=== PATIENT | female | born 1985 | race Caucasian/White ===

== ENCOUNTER 2017-12-29 15:53 | Inpatient (IN) | payer OTHER, SELFPAY ==
[2017-12-29 15:54] VITALS: BP 139/65; PULSE 41; RESP 16; TEMP 36.4; O2SAT 100; BMI 38.6
[2017-12-29 16:07] VITALS: BP 132/75; PULSE 71; RESP 18; O2SAT 100
[2017-12-29] MEDS: 0.9% Normal Saline 1,000 ML 1000 ML IV (16:42)
[2017-12-29] MEDS: Morphine 4 MG/ML Syringe IV ×2 (16:42→17:59)
[2017-12-29] MEDS: Ondansetron 4 MG/2 ML Vial IV (16:42)
[2017-12-29 16:57] LABS: Absolute Lymphocyte Count 4.54 X10^3/ul (0.83-4.51); Absolute Neutrophil Count 7.2 X10^3/uL (2.0-7.7); Basophil# 0.02 X10^3/uL; Basophil% 0.2 % (0-1); Eosinophils% 1.6 % (0-5); Hematocrit 37.5 % (37-47); Hemoglobin 12.2 g/dl (12.0-15.0); Lymphocyte # 4.54 X10^3/ul (4.0); Lymphocyte % 35.6 % (19-41); Mean Corp Hgb Conc 32.5 g/gl (32-36); Mean Corpuscular Volume 86.2 fL (81-99); Mean Platelet Vol. 9.8 fl (6.2-12.0); Monocyte# 0.75 X10^3/uL; Monocyte% 5.9 % (0-10); Neutrophil # 7.23 X10^3/uL (2.7-7.7); Neutrophil % 56.6 % (47-70); Platelet Count 314 K/mm3 (150-450); RBC Distribution Width CV 13.4 % (11.6-14.6); RBC Distribution Width SD 42.5 fl (35.1-43.9); Red Blood Count 4.35 M/mm3 (4.2-5.4); White Blood Count 12.8 K/mm3 (4.4-11.0)
[2017-12-29 17:02] LABS: POSITIVE COUNT NO; POSITIVE DIFFERENTIAL NO; POSITIVE MORPHOLOGY NO
[2017-12-29 17:09] LABS: Partial Thromboplast Time 31.2 Seconds (24.1-36.2)
[2017-12-29 17:10] LABS: ALB/GLOB Ratio 0.8 RATIO (0.9-2.4); AST(SGOT) 33 U/L (15-37); Alanine Aminotransfer ALT/SGPT 25 U/L (13-56); Albumin, Serum 3.7 g/dL (3.2-5.0); Alkaline Phosphatase 97 U/L (45-117); Anion Gap 11 (5-15); BUN 14 mg/dL (7-18); BUN/Creat Ratio 14.6 RATIO (10-20); Calcium,Total 8.7 mg/dL (8.5-10.1); Chloride 107 mmol/L (98-107); Creatinine, Serum 0.96 mg/dL (0.55-1.02); EST Glomerular Filtration Rate 72 mL/min (>60); Est Glom Filt Rate - Afr Amer 87 mL/min (>60); Estimated Creatinine Clearance 73.32 ml/min; Globulin 4.6 g/dL (2.2-4.2); Glucose 92 mg/dL (74-106); Lipase 153 U/L (73-393); Protein, Total 8.3 g/dL (6.4-8.2); Sodium Level 142 mmol/L (136-145)
[2017-12-29 17:18] LABS: Prothrombin Time (Protime)PT. 13.5 SECONDS (11.7-14.9)
--- NOTE | 2017-12-29 17:47 | EKG12_ITS ---
Test Reason : GI BLEED Blood Pressure : / mmHG Vent. Rate : 067 BPM Atrial Rate : 067 BPM P-R Int : 138 ms QRS Dur : 096 ms QT Int : 718 ms P-R-T Axes : 041 010 033 degrees QTc Int : 758 ms Sinus rhythm with frequent Premature ventricular complexes and Premature atrial complexes Prolonged QT Abnormal ECG Confirmed by BLANCA DUMONT, EDER ([id number]), purchase request editor SHANICE NICKERSON ([id number]) on 01/03/2018 2:40:31 PM Referred By: Confirmed By:EDER RIOS MD
--- NOTE | 2017-12-29 17:56 | ED.VISSUMM ---
- ER Visit Summary Date of Service: 12/29/17 Chief Complaint: Abdominal pain and rectal bleeding History of Present Illness: The patient is a 32 F with abdominal pain for the past 5 days. Patient reports cramps, worse on the right side. Associated with diarrhea and nausea. Pain has been constant today. She has had some blood in her diarrhea over the last few days, but today she is passing clots. She was seen at an outside emergency department. She had lab testing and CT imaging that showed colitis. She also had a potassium of 3.2. She was not . Her urinalysis was unremarkable. Lactate was normal. She was discharged on Bentyl and Flagyl. Her symptoms worsened today and so she came for an evaluation. She has no history of this. Physical Examination: Afebrile and vital signs unremarkable. Alert and oriented. No acute distress. Heart regular rate and rhythm. Lungs clear. Abdomen soft but tender in the right side. No guarding or rebound. Skin appears normal. Rectal exam was unremarkable for any gross bleeding. This was chaperoned by the nurse. Test Results: White count 12.8. Potassium 3.0. Liver panel and lipase normal. Coags normal. Fecal occult blood testing positive. Emergency Department Course and Treatment: Patient treated with fluids, morphine, and Zofran. She had continued pain and required additional morphine. She was also treated with Phenergan for continued nausea. Nursing did note bigeminy on her monitor. Will check an EKG. Results are pending. At this time, I did not feel that repeat CT was indicated given the potential risks. She has diagnosis of colitis. Her signs and symptoms and laboratory findings are consistent with this. Will treat with potassium and Zosyn. Hospitalist was contacted for further care. Treatment Plan: As above Disposition: Admission Impression: 1. Colitis 2. Hemoccult-positive stool 3. Hypokalemia This note was generated with [employer] dictation software. It may contain incorrect words, spelling, and punctuation that were not noted in review of the chart prior to signing ED Disposition - Plan for ED Patient: Chief Complaint: GI Bleed Referrals: Care Physician,No Primary [Primary Care Provider] -
--- NOTE | 2017-12-29 17:59 | ED.DCSUM_ITS ---
- ER Visit Summary Date of Service: 12/29/17 Chief Complaint: Abdominal pain and rectal bleeding History of Present Illness: The patient is a 32 F with abdominal pain for the past 5 days. Patient reports cramps, worse on the right side. Associated with diarrhea and nausea. Pain has been constant today. She has had some blood in her diarrhea over the last few days, but today she is passing clots. She was seen at an outside emergency department. She had lab testing and CT imaging that showed colitis. She also had a potassium of 3.2. She was not . Her urinalysis was unremarkable. Lactate was normal. She was discharged on Bentyl and Flagyl. Her symptoms worsened today and so she came for an evaluation. She has no history of this. Physical Examination: Afebrile and vital signs unremarkable. Alert and oriented. No acute distress. Heart regular rate and rhythm. Lungs clear. Abdomen soft but tender in the right side. No guarding or rebound. Skin appears normal. Rectal exam was unremarkable for any gross bleeding. This was chaperoned by the nurse. Test Results: White count 12.8. Potassium 3.0. Liver panel and lipase normal. Coags normal. Fecal occult blood testing positive. Emergency Department Course and Treatment: Patient treated with fluids, morphine , and Zofran. She had continued pain and required additional morphine. She was also treated with Phenergan for continued nausea. Nursing did note bigeminy on her monitor. Will check an EKG. Results are pending. At this time, I did not feel that repeat CT was indicated given the potential risks. She has diagnosis of colitis. Her signs and symptoms and laboratory findings are consistent with this. Will treat with potassium and Zosyn. Hospitalist was contacted for further care. Treatment Plan: As above Disposition: Admission Impression: 1. Colitis 2. Hemoccult-positive stool 3. Hypokalemia This note was generated with [employer] dictation software. It may contain incorrect words, spelling, and punctuation that were not noted in review of the chart prior to signing ED Disposition - Plan for ED Patient: Chief Complaint: GI Bleed Referrals: Care Physician,No Primary [Primary Care Provider] -
[2017-12-29 18:01] VITALS: BP 124/64; PULSE 68; RESP 18; O2SAT 99
--- NOTE | 2017-12-29 18:09 | PCM.HP.STD ---
Problem List (1) Colitis Status: Acute (2) Hypokalemia Status: Acute History of Present Illness Date of Admission: 12/29/17 Chief Complaint: abdominal pain The patient is a 32 year old F who presents to the ER with c/o cramping abdominal pain and diarrhea for 5 days. Starting Wednesday she has had abdominal pain described as all over cramping. She went to urgent care and had a CT showing diffuse colitis and was discharged on flagyl and bentyl. It is worse with any PO intake, however lately she has not been eating or drinking and is still having the pain and diarrhea. She had no improvement. She has had bright red blood filling the bowl. She thought she was improving this morning, but later started passing red clots and has doubled over with cramps. She has no fever or chills. She has some nausea but has not had vomiting. She has no medical hx. She does not have a gb and has had intermittent chronic diarrhea with certain foods. She has not been out of the country. Nobody in the house is sick. She has been camping but takes bottled water. Is on well water. 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 Denies: Nausea, Vomiting Genitourinary: Denies: Dysuria Musculoskeletal: Denies: Joint Pain, Joint Tenderness Skin: Denies: Rash, Wounds Neurological: Denies: Numbness, Tingling, Focal weakness Psychiatric: Denies: Anxiety, Depression, Homicidal Ideations, Suicidal Ideations Hematologic/ Lymphatic: Denies: Easy Bruising, Easy Bleeding VTE Information - Inpt Only VTE Present on Admission: No VTE Mechan Device Prophylaxis: SCD's VTE Pharm Prophylaxis ordered?: No Patient Problems: Active and Suspected Problems Colitis (Acute) Hypokalemia (Acute) - Physical Exam General: Alert, Oriented x3, Cooperative HEENT: Atraumatic, PERRLA, EOMI, Normocephalic Neck: Supple, No JVD, Negative Carotid Bruits Lungs: Clear to auscultation, Normal air movement Cardiovascular: Regular rate, No murmurs Abdomen: Bowel Sounds Present, Soft, Tender - diffuse no guarding or rigidity Extremities: No edema, Capillary Refill Less than 3 Seconds Skin: No rashes, No breakdown Musculoskeletal: No Tenderness to Palpation of Joints or Extremities Neurological: Cranial nerves II-XII grossly intact Psych/Mental Status: Normal Affect, Appropriate, Alert and oriented to time, place, person, mood and affect Vital Signs Temp Pulse Resp BP Pulse Ox 97.5 F L 68 18 124/64 H 99 12/29/17 15:54 12/29/17 18:01 12/29/17 18:01 12/29/17 18:01 12/29/17 18:01 Oxygen Delivery Method Room Air Weight: 225 lb 3.2 oz Body Mass Index (BMI) 38.6 Microbiology Past 72 Hours 12/29/17 16:30 Stool Occult Blood (NATHAN) - Final Stool Occult Blood Positive Laboratory Tests Past 24 Hrs 12/29/17 12/29/17 12/29/17 16:30 16:30 16:30 WBC 12.8 H RBC 4.35 Hgb 12.2 Hct 37.5 MCV 86.2 MCH 28.0 MCHC 32.5 RDW 13.4 RDW Differential 42.5 Plt Count 314 MPV 9.8 Immature Gran % (Auto) 0.100 Neut % (Auto) 56.6 Lymph % (Auto) 35.6 [place] % (Auto) 5.9 Eos % (Auto) 1.6 Baso % (Auto) 0.2 Absolute Neuts (auto) 7.2 Absolute Lymphs (auto) 4.54 H Total Counted Not Reportable PT 13.5 INR 1.0 APTT 31.2 Sodium 142 Potassium 3.0 L Chloride 107 Carbon Dioxide 24.0 Anion Gap 11 BUN 14 Creatinine 0.96 Estim Creat Clear Calc 73.32 Est GFR (MDRD) Af Amer 87 Est GFR (MDRD) Non-Af 72 BUN/Creatinine Ratio 14.6 Glucose 92 Calcium 8.7 Total Bilirubin 0.40 AST 33 ALT 25 Alkaline Phosphatase 97 Total Protein 8.3 H Albumin 3.7 Globulin 4.6 H Albumin/Globulin Ratio 0.8 L Lipase 153 Assessment/Plan All Active Problems Colitis (Acute) Hypokalemia (Acute) 1. Acute colitis - with bloody stools. Hgb stable. Start zosyn. Failed flagyl. Check enteric panel, stool lactoferrin. Hemoccult +, ivana blood in stools. Diffuse crampy abdominal pain. lipase normal. Leukocytosis but otherwise normal vital. Proabably viral, but will rule out bacterial as she camps, has well water, and has a farm with numerous potential hosts. Will also add PPI. 2. Hypokalemia - repleted in ER. 3. Bigemini on monitor- get 12 lead. DVT ppx: SCDs, early ambulation This patient was seen by Yoan Blandon PA-C under the supervision of Dr. Hutchinson
--- NOTE | 2017-12-29 18:19 | HP.PCM_ITS ---
Problem List (1) Colitis Status: Acute (2) Hypokalemia Status: Acute History of Present Illness Date of Admission: 12/29/17 Chief Complaint: abdominal pain The patient is a 32 year old F who presents to the ER with c/o cramping abdominal pain and diarrhea for 5 days. Starting Wednesday she has had abdominal pain described as all over cramping. She went to urgent care and had a CT showing diffuse colitis and was discharged on flagyl and bentyl. It is worse with any PO intake, however lately she has not been eating or drinking and is still having the pain and diarrhea. She had no improvement. She has had bright red blood filling the bowl. She thought she was improving this morning, but later started passing red clots and has doubled over with cramps. She has no fever or chills. She has some nausea but has not had vomiting. She has no medical hx. She does not have a gb and has had intermittent chronic diarrhea with certain foods. She has not been out of the country. Nobody in the house is sick. She has been camping but takes bottled water. Is on well water. 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 Denies: Nausea, Vomiting Genitourinary: Denies: Dysuria Musculoskeletal: Denies: Joint Pain, Joint Tenderness Skin: Denies: Rash, Wounds Neurological: Denies: Numbness, Tingling, Focal weakness Psychiatric: Denies: Anxiety, Depression, Homicidal Ideations, Suicidal Ideations Hematologic/ Lymphatic: Denies: Easy Bruising, Easy Bleeding VTE Information - Inpt Only VTE Present on Admission: No VTE Mechan Device Prophylaxis: SCD's VTE Pharm Prophylaxis ordered?: No Patient Problems: Active and Suspected Problems Colitis (Acute) Hypokalemia (Acute) - Physical Exam General: Alert, Oriented x3, Cooperative HEENT: Atraumatic, PERRLA, EOMI, Normocephalic Neck: Supple, No JVD, Negative Carotid Bruits Lungs: Clear to auscultation, Normal air movement Cardiovascular: Regular rate, No murmurs Abdomen: Bowel Sounds Present, Soft, Tender - diffuse no guarding or rigidity Extremities: No edema, Capillary Refill Less than 3 Seconds Skin: No rashes, No breakdown Musculoskeletal: No Tenderness to Palpation of Joints or Extremities Neurological: Cranial nerves II-XII grossly intact Psych/Mental Status: Normal Affect, Appropriate, Alert and oriented to time, place, person, mood and affect Vital Signs Temp Pulse Resp BP Pulse Ox 97.5 F L 68 18 124/64 H 99 12/29/17 15:54 12/29/17 18:01 12/29/17 18:01 12/29/17 18:01 12/29/17 18:01 Oxygen Delivery Method Room Air Weight: 225 lb 3.2 oz Body Mass Index (BMI) 38.6 Microbiology Past 72 Hours 12/29/17 16:30 Stool Occult Blood (NATHAN) - Final Stool Occult Blood Positive Laboratory Tests Past 24 Hrs 12/29/17 12/29/17 12/29/17 16:30 16:30 16:30 WBC 12.8 H RBC 4.35 Hgb 12.2 Hct 37.5 MCV 86.2 MCH 28.0 MCHC 32.5 RDW 13.4 RDW Differential 42.5 Plt Count 314 MPV 9.8 Immature Gran % (Auto) 0.100 Neut % (Auto) 56.6 Lymph % (Auto) 35.6 [place] % (Auto) 5.9 Eos % (Auto) 1.6 Baso % (Auto) 0.2 Absolute Neuts (auto) 7.2 Absolute Lymphs (auto) 4.54 H Total Counted Not Reportable PT 13.5 INR 1.0 APTT 31.2 Sodium 142 Potassium 3.0 L Chloride 107 Carbon Dioxide 24.0 Anion Gap 11 BUN 14 Creatinine 0.96 Estim Creat Clear Calc 73.32 Est GFR (MDRD) Af Amer 87 Est GFR (MDRD) Non-Af 72 BUN/Creatinine Ratio 14.6 Glucose 92 Calcium 8.7 Total Bilirubin 0.40 AST 33 ALT 25 Alkaline Phosphatase 97 Total Protein 8.3 H Albumin 3.7 Globulin 4.6 H Albumin/Globulin Ratio 0.8 L Lipase 153 Assessment/Plan All Active Problems Colitis (Acute) Hypokalemia (Acute) 1. Acute colitis - with bloody stools. Hgb stable. Start zosyn. Failed flagyl. Check enteric panel, stool lactoferrin. Hemoccult +, ivana blood in stools. Diffuse crampy abdominal pain. lipase normal. Leukocytosis but otherwise normal vital. Proabably viral, but will rule out bacterial as she camps, has well water , and has a farm with numerous potential hosts. Will also add PPI. 2. Hypokalemia - repleted in ER. 3. Bigemini on monitor- get 12 lead. DVT ppx: SCDs, early ambulation This patient was seen by Yoan Blandon PA-C under the supervision of Dr. Hutchinson
[2017-12-29] MEDS: proMETHazine 25 MG/ML Syringe 6.25 MG IV (18:27)
[2017-12-29] MEDS: Piperacil/Tazobactam 3.375 GM/50 ML ML IV ×2 (18:27→22:02)
[2017-12-29 18:48] VITALS: BMI 38.4
[2017-12-29 19:16] VITALS: BP 138/74; PULSE 52; RESP 18; TEMP 37; O2SAT 100
--- NOTE | 2017-12-29 19:31 | ECHOD_ITS ---
Reason For Study: Arrhythmia Procedure This was a 2D Doppler, Color Flow transthoracic echocardiogram. Exam performed portable in patient room. Left Ventricle Normal size and thickness. The estimated ejection fraction is 65 %. Normal diastology for age. No regional wall motion abnormalities noted. Right Ventricle Normal size and thickness. Normal systolic function. Atria Normal left atrium. Normal right atrium. Normal atrial septum. Mitral Valve The mitral valve is structurally normal. No prolapse or stenosis seen. Tricuspid Valve Normal tricuspid valve. Mild (1+) tricuspid valve insufficiency. Right ventricular systolic pressure estimated to be 41 mmHg. Mild pulmonary hypertension. Aortic Valve Normal aortic valve. Trisinus/trileaflet aortic valve. Pulmonic Valve Normal pulmonic valve. Trivial pulmonic valve insufficiency. Great Vessels Normal aortic root. Normal arch. Normal inferior vena cava. Inferior vena cava collapse with sniff. Pericardium/Pleural No pericardial effusion. MMode/2D Measurements & Calculations LVIDd: 5.2 cm IVSd: 1.0 cm LVOT diam: 2.0 cm LVIDs: 2.5 cm LVPWd: 0.91 cm LVOT area: 3.0 cm2 RVDd: 3.8 cm FS: 52.6 % Ao root diam: 3.1 cm LAV(MOD-bp): 61.9 ml LA A4 area: 20.5 cm2 LA dimension: 4.3 cm LAV(MOD-bp) Indexed: 30.1 ml/m2 LAV(MOD-sp2): 62.4 ml LAV(MOD-sp4): 59.7 ml RA A4 area: 18.6 cm2 Time Measurements MV dec time: 0.22 sec Doppler Measurements & Calculations MV E max mustapha: 103.5 cm/sec Lat Peak E' Mustapha: 13.9 cm/sec Med Peak E' Mustapha: 9.9 cm/sec MV A max mustapha: 60.9 cm/sec E/E' lat: 7.5 E/E' med: 10.4 MV E/A: 1.7 MV V2 max: 107.9 cm/sec MV P1/2t max mustapha: 109.1 cm/sec Ao V2 max: 192.6 cm/sec MV max P.7 mmHg MV P1/2t: 89.5 msec Ao max P.8 mmHg MV V2 mean: 47.1 cm/sec MV dec slope: 357.2 cm/sec2 Ao V2 mean: 134.1 cm/sec MV mean P.1 mmHg MVA(P1/2t): 2.5 cm2 Ao mean P.1 mmHg MV V2 VTI: 31.1 cm Ao V2 VTI: 41.9 cm MVA(VTI): 3.2 cm2 SAURAV(I,D): 2.3 cm2 SAURAV(V,D): 2.2 cm2 LV V1 max: 144.9 cm/sec SV(LVOT): 98.1 ml PA V2 max: 93.2 cm/sec LV V1 max P.4 mmHg LV V1 mean P.5 mmHg LV V1 mean: 98.5 cm/sec LV V1 VTI: 32.8 cm TR max mustapha: 294.0 cm/sec TR max P.6 mmHg Interpretation Summary The estimated ejection fraction is 65 %. Normal diastology for age. Mild (1+) tricuspid valve insufficiency. Right ventricular systolic pressure estimated to be 41 mmHg. Mild pulmonary hypertension. There is no comparison study available. Ordering Physician: Tasneem Hutchinson Referring Physician: No PCP noted Performed By: Frederick Downing RCS
[2017-12-29 19:48] VITALS: PULSE 60
[2017-12-29 21:14] LABS: Magnesium 2.1 mg/dL (1.6-2.6)
[2017-12-29 21:35] VITALS: BP 118/65; PULSE 53; RESP 16; TEMP 36.6; O2SAT 97
[2017-12-29] MEDS: HYDROmorphone 0.5 MG/0.5 ML SYRINGE IV (21:38)
[2017-12-29] MEDS: Dicyclomine 10 MG Capsule 20 MG PO (21:40)
[2017-12-30] VITALS (10 sets, daily range): BP systolic 107–132; BP diastolic 55–71; PULSE 55–74; RESP 16–18; TEMP 36.6–37; O2SAT 95–100
[2017-12-30] MEDS: 0.9% Normal Saline 1,000 ML 125 ML IV ×3 (02:11→16:52)
[2017-12-30] MEDS: HYDROmorphone 0.5 MG/0.5 ML SYRINGE IV ×4 (02:29→22:10)
[2017-12-30] MEDS: Ondansetron 4 MG/2 ML Vial IV ×3 (02:29→18:16)
[2017-12-30 02:39] LABS: Absolute Lymphocyte Count 3.79 X10^3/ul (0.83-4.51); Absolute Neutrophil Count 4.5 X10^3/uL (2.0-7.7); Basophil# 0.05 X10^3/uL; Basophil% 0.5 % (0-1); Eosinophil# 0.35 X10^3/uL; Eosinophils% 3.8 % (0-5); Hematocrit 32.7 % (37-47); Hemoglobin 10.5 g/dl (12.0-15.0); Lymphocyte # 3.79 X10^3/ul (4.0); Lymphocyte % 41.3 % (19-41); Mean Corp Hgb Conc 32.1 g/gl (32-36); Mean Corpuscular Volume 87.2 fL (81-99); Mean Platelet Vol. 9.5 fl (6.2-12.0); Monocyte# 0.44 X10^3/uL; Monocyte% 4.8 % (0-10); Neutrophil # 4.53 X10^3/uL (2.7-7.7); Neutrophil % 49.5 % (47-70); Platelet Count 260 K/mm3 (150-450); RBC Distribution Width CV 13.4 % (11.6-14.6); RBC Distribution Width SD 41.4 fl (35.1-43.9); Red Blood Count 3.75 M/mm3 (4.2-5.4); White Blood Count 9.2 K/mm3 (4.4-11.0)
[2017-12-30 02:42] LABS: Differential Indicated SCAN CRITERIA MET; POSITIVE COUNT NO; POSITIVE DIFFERENTIAL NO; POSITIVE MORPHOLOGY YES
[2017-12-30 02:59] LABS: Anion Gap 8 (5-15); BUN 11 mg/dL (7-18); BUN/Creat Ratio 12.9 RATIO (10-20); Calcium,Total 7.5 mg/dL (8.5-10.1); Chloride 112 mmol/L (98-107); Cholesterol 122 mg/dL (200); Creatinine, Serum 0.85 mg/dL (0.55-1.02); EST Glomerular Filtration Rate 83 mL/min (>60); Est Glom Filt Rate - Afr Amer 100 mL/min (>60); Estimated Creatinine Clearance 82.81 ml/min; Glucose 89 mg/dL (74-106); High Density Lipoprotein 38 mg/dL; Potassium 3.7 mmol/L (3.5-5.1); Sodium Level 143 mmol/L (136-145); Triglycerides 80 mg/dL; Very Low Density Lipoprotein 16 mg/dL (5-40)
[2017-12-30] MEDS: Dicyclomine 10 MG Capsule 20 MG PO ×4 (05:12→22:10)
[2017-12-30] MEDS: Piperacil/Tazobactam 3.375 GM/50 ML ML IV (05:12)
--- NOTE | 2017-12-30 05:55 | EKG12_ITS ---
Test Reason : AM EKG Blood Pressure : / mmHG Vent. Rate : 051 BPM Atrial Rate : 051 BPM P-R Int : 142 ms QRS Dur : 094 ms QT Int : 446 ms P-R-T Axes : 031 020 059 degrees QTc Int : 411 ms Sinus bradycardia Otherwise normal ECG When compared with ECG of 29-DEC-2017 18:09, MANUAL COMPARISON REQUIRED, DATA IS UNCONFIRMED Confirmed by BLANCA DUMONT, EDER ([id number]), editor sound SHANICE NICKERSON ([id number]) on 01/03/2018 3:58:22 PM Referred By: NERY Confirmed By:EDER RIOS MD
[2017-12-30] MEDS: Acetaminophen 325 MG Tablet 650 MG PO (06:39)
[2017-12-30] MEDS: Pantoprazole Sodium 40 MG Tablet PO (09:28)
--- NOTE | 2017-12-30 09:34 | PCM.PROGNOTE ---
<Alisha Agudelo - Last Filed: 12/30/17 10:11> Patient Problems: Active and Suspected Problems Colitis (Acute) Hypokalemia (Acute) Subjective: Patient seen exam. Undergoing echocardiogram. Denies pain currently. States she had significant lower abdominal pain this morning. She states improved with rest. She describes pain as cramping, similar to menstrual cramps only intensified. States she has had frequent episodes of diarrhea this morning. Denies fever, chills. Complains of nausea, no emesis. - Physical Exam General: Alert, Oriented x3, Cooperative, No apparent distress HEENT: Atraumatic, PERRLA, EOMI, Normocephalic Neck: Supple, No JVD, Negative Carotid Bruits Lungs: Clear to auscultation, Normal air movement Cardiovascular: Regular Rhythm, Normal S1, Normal S2, No murmurs, Bradycardic Abdomen: Bowel Sounds Present, Soft, Non-Distended, Obese, Tender - Generalized Extremities: No clubbing, No cyanosis, No edema, Capillary Refill Less than 3 Seconds Skin: No rashes, No breakdown Musculoskeletal: No Tenderness to Palpation of Joints or Extremities Neurological: Cranial nerves II-XII grossly intact, Neuro grossly intact Psych/Mental Status: Normal Affect, Appropriate Vital Signs Temp Pulse Resp BP Pulse Ox 98.5 F 55 L 18 107/67 100 12/30/17 08:30 12/30/17 08:30 12/30/17 08:30 12/30/17 08:30 12/30/17 08:30 Oxygen Delivery Method Room Air Weight: 225 lb 2.882 oz Body Mass Index (BMI) 38.4 Intake and Output for Last 24 Hours 12/28/17 12/29/17 12/30/17 23:59 23:59 23:59 Intake Total 1001 / 1001 Output Total 300 / 300 Balance 701 / 701 Microbiology Past 72 Hours 12/30/17 02:30 Stool Lactoferrin - Final Stool Laboratory Tests Past 24 Hrs 12/29/17 12/29/17 12/30/17 20:39 23:01 02:19 WBC 9.2 RBC 3.75 L Hgb 10.5 L Hct 32.7 L MCV 87.2 MCH 28.0 MCHC 32.1 RDW 13.4 RDW Differential 41.4 Plt Count 260 MPV 9.5 Immature Gran % (Auto) 0.100 Neut % (Auto) 49.5 Lymph % (Auto) 41.3 H [place] % (Auto) 4.8 Eos % (Auto) 3.8 Baso % (Auto) 0.5 Absolute Neuts (auto) 4.5 Absolute Lymphs (auto) 3.79 Total Counted Not Reportable Sodium Potassium Chloride Carbon Dioxide Anion Gap BUN Creatinine Estim Creat Clear Calc Est GFR (MDRD) Af Amer Est GFR (MDRD) Non-Af BUN/Creatinine Ratio Glucose Calcium Magnesium 2.1 Troponin I < 0.015 < 0.015 Triglycerides Cholesterol LDL Cholesterol VLDL Cholesterol HDL Cholesterol 12/30/17 12/30/17 02:19 02:19 WBC RBC Hgb Hct MCV MCH MCHC RDW RDW Differential Plt Count MPV Immature Gran % (Auto) Neut % (Auto) Lymph % (Auto) [place] % (Auto) Eos % (Auto) Baso % (Auto) Absolute Neuts (auto) Absolute Lymphs (auto) Total Counted Sodium 143 Potassium 3.7 Chloride 112 H Carbon Dioxide 23.0 Anion Gap 8 BUN 11 Creatinine 0.85 Estim Creat Clear Calc 82.81 Est GFR (MDRD) Af Amer 100 Est GFR (MDRD) Non-Af 83 BUN/Creatinine Ratio 12.9 Glucose 89 Calcium 7.5 L Magnesium Troponin I < 0.015 Triglycerides 80 Cholesterol 122 LDL Cholesterol 68 VLDL Cholesterol 16 HDL Cholesterol 38 L Medical Necessity - Tobacco Use Smoking Status: Never smoker Tobacco Use: Non-smoker Assessment/Plan All Active Problems Colitis (Acute) Hypokalemia (Acute) 1. Acute colitis/gastroenteritis, stool panel positive for shiga toxin- Stool lactoferrin negative. C. difficile pending. Ova and parasites pending. Continue IV fluids. NPO with sips and chips. Advance diet as tolerated. PRN Antiemetics. PRN pain regimen. Discontinue antibiotics. 2. Intermittent bigeminy, bradycardia-troponin negative. EKG without acute changes. Echocardiogram pending. 3. Hypokalemia- Resolved. DVT prophylaxis- SCDs This patient was seen by Alisha Agudelo NP-C under the supervision of Dr. Pandey. <Raina Pandey - Last Filed: 12/30/17 14:17> - Physical Exam Vital Signs Temp Pulse Resp BP Pulse Ox 98.5 F 55 L 18 107/67 100 12/30/17 08:30 12/30/17 08:30 12/30/17 08:30 12/30/17 08:30 12/30/17 08:30 Oxygen Delivery Method Room Air Weight: 225 lb 2.882 oz Body Mass Index (BMI) 38.4 Intake and Output for Last 24 Hours 12/28/17 12/29/17 12/30/17 23:59 23:59 23:59 Intake Total 1635 / 1635 Output Total 1100 / 1100 Balance 535 / 535 Microbiology Past 72 Hours 12/30/17 02:30 C. difficile DNA Amplification - Final Stool 12/30/17 02:30 Enteric Bacteriology - Final Stool Shiga Toxin 1 12/30/17 02:30 Stool Lactoferrin - Final Stool Laboratory Tests Past 24 Hrs 12/29/17 12/29/17 12/30/17 20:39 23:01 02:19 WBC 9.2 RBC 3.75 L Hgb 10.5 L Hct 32.7 L MCV 87.2 MCH 28.0 MCHC 32.1 RDW 13.4 RDW Differential 41.4 Plt Count 260 MPV 9.5 Immature Gran % (Auto) 0.100 Neut % (Auto) 49.5 Lymph % (Auto) 41.3 H [place] % (Auto) 4.8 Eos % (Auto) 3.8 Baso % (Auto) 0.5 Absolute Neuts (auto) 4.5 Absolute Lymphs (auto) 3.79 Total Counted Not Reportable Sodium Potassium Chloride Carbon Dioxide Anion Gap BUN Creatinine Estim Creat Clear Calc Est GFR (MDRD) Af Amer Est GFR (MDRD) Non-Af BUN/Creatinine Ratio Glucose Calcium Magnesium 2.1 Troponin I < 0.015 < 0.015 Triglycerides Cholesterol LDL Cholesterol VLDL Cholesterol HDL Cholesterol 12/30/17 12/30/17 02:19 02:19 WBC RBC Hgb Hct MCV MCH MCHC RDW RDW Differential Plt Count MPV Immature Gran % (Auto) Neut % (Auto) Lymph % (Auto) [place] % (Auto) Eos % (Auto) Baso % (Auto) Absolute Neuts (auto) Absolute Lymphs (auto) Total Counted Sodium 143 Potassium 3.7 Chloride 112 H Carbon Dioxide 23.0 Anion Gap 8 BUN 11 Creatinine 0.85 Estim Creat Clear Calc 82.81 Est GFR (MDRD) Af Amer 100 Est GFR (MDRD) Non-Af 83 BUN/Creatinine Ratio 12.9 Glucose 89 Calcium 7.5 L Magnesium Troponin I < 0.015 Triglycerides 80 Cholesterol 122 LDL Cholesterol 68 VLDL Cholesterol 16 HDL Cholesterol 38 L Assessment/Plan Patient seen by Alisha MORRISON under my supervision. Patient was admitted with a complaint of bloody diarrhea, fever and chills. She also had associated abdominal cramping. CT scan done in outside hospital ED was notable for diffuse colitis she was initially discharged home on Bentyl and oral Flagyl but pain was ongoing so she came into the ED. She also complained of intermittent midsternal and left-sided chest pressure which was worsened by any exertional activity with assisted occasional lightheadedness and mild headache. EKG revealed bigeminy and CBC showed WBC of 12.8. She was started on IV Zosyn in the ED. Stool was positive for Shiga toxin and ova and parasites are pending. Patient seen and examined this morning. She still complains of diarrhea overnight and said she had several episodes of bloody diarrhea. She denies any fever or chills and complains of abdominal cramping but denies nausea and vomiting. 12 point review of systems otherwise negative. Labs and vitals reviewed. On examination: Vital Signs Height 5 ft 4.17 in Weight: 225 lb 2.882 oz Weight in Pounds 225.2 lbs Pulse Ox 100 Temperature 98.5 F Pulse Rate 55 Respiratory Rate 18 Blood Pressure 107/67 Blood Pressure Position Semi-Fowlers General: Alert, Oriented x3, Cooperative, No apparent distress HEENT: Atraumatic, PERRLA, EOMI, Normocephalic Neck: Supple, No JVD, Negative Carotid Bruits Lungs: Clear to auscultation, Normal air movement Cardiovascular: Regular Rhythm, Normal S1, Normal S2, No murmurs, Bradycardic Abdomen: Bowel Sounds Present, Soft, Non-Distended, Obese, Tender - Generalized Extremities: No clubbing, No cyanosis, No edema, Capillary Refill Less than 3 Seconds Skin: No rashes, No breakdown Musculoskeletal: No Tenderness to Palpation of Joints or Extremities Neurological: Cranial nerves II-XII grossly intact, Neuro grossly intact Psych/Mental Status: Normal Affect, Appropriate 1. Gastroenteritis with colitis: improving. continue IVF and dc antibiotics for now. Stool grew Shiga toxin. 2. Chest pain: complained of episodic chest pain. EKG showed bigeminy. troponins were negative. 2D echo reading pending. continue monitoring with telemetry. Rest of management as per Alisha MORRISON's note. Code Visit Inpatient E&M: 90884 Subs Hosp L3
--- NOTE | 2017-12-30 09:55 | CASEMGMT ---
SEE ROMY SAINZ ASSESS LINK: D/C PLAN: HOME Intro role to ROMY SAINZ. Pt up ad juliette in room and to bathroom. @ bedside. Pt reports is independent @ home, requires no DME, and denies discharge needs. Pt has no PCP and has been provided with list of local PCP's. CM to follow for any discharge planning needs that may arise. Brayden STANTON BSN ALISTAIR.
[2017-12-30] MEDS: proMETHazine 25 MG/ML Syringe 6.25 MG IV (12:49)
[2017-12-31] VITALS (10 sets, daily range): BP systolic 119–126; BP diastolic 69–76; PULSE 50–71; RESP 16–18; TEMP 36.7–37.2; O2SAT 97–98
[2017-12-31] MEDS: 0.9% Normal Saline 1,000 ML 125 ML IV ×3 (00:56→17:31)
[2017-12-31] MEDS: Acetaminophen 325 MG Tablet 650 MG PO (00:56)
[2017-12-31] MEDS: Dicyclomine 10 MG Capsule 20 MG PO ×4 (06:06→21:13)
[2017-12-31 06:16] LABS: Anion Gap 9 (5-15); BUN 3 mg/dL (7-18); BUN/Creat Ratio 4.7 RATIO (10-20); Calcium,Total 8.3 mg/dL (8.5-10.1); Chloride 110 mmol/L (98-107); Creatinine, Serum 0.64 mg/dL (0.55-1.02); EST Glomerular Filtration Rate 114 mL/min (>60); Est Glom Filt Rate - Afr Amer 138 mL/min (>60); Estimated Creatinine Clearance 109.98 ml/min; Glucose 82 mg/dL (74-106); Potassium 3.4 mmol/L (3.5-5.1); Sodium Level 142 mmol/L (136-145)
[2017-12-31 06:23] LABS: Hematocrit 33.8 % (37-47); Hemoglobin 10.9 g/dl (12.0-15.0); Mean Corp Hgb Conc 32.2 g/gl (32-36); Mean Corpuscular Volume 86.9 fL (81-99); Platelet Count 265 K/mm3 (150-450); RBC Distribution Width CV 13.1 % (11.6-14.6); RBC Distribution Width SD 40.5 fl (35.1-43.9); Red Blood Count 3.89 M/mm3 (4.2-5.4); White Blood Count 9.3 K/mm3 (4.4-11.0)
[2017-12-31 06:50] LABS: Scan Indicated on CBC? Y/N NO
[2017-12-31] MEDS: HYDROmorphone 0.5 MG/0.5 ML SYRINGE IV (08:25)
[2017-12-31] MEDS: Ondansetron 4 MG/2 ML Vial IV (08:25)
[2017-12-31] MEDS: 0.9% NaCl Peripheral Flush Adult/Peds IV ×2 (08:26→13:46)
--- NOTE | 2017-12-31 08:32 | EKG12_ITS ---
Test Reason : AM EKG Blood Pressure : / mmHG Vent. Rate : 060 BPM Atrial Rate : 060 BPM P-R Int : 138 ms QRS Dur : 092 ms QT Int : 402 ms P-R-T Axes : 006 009 049 degrees QTc Int : 402 ms Normal sinus rhythm Nonspecific T wave abnormality Abnormal ECG When compared with ECG of 31-DEC-2017 08:52, MANUAL COMPARISON REQUIRED, DATA IS UNCONFIRMED Confirmed by BLANCA DUMONT, EDER ([id number]), makeup editor SHANICE NICKERSON ([id number] on 01/05/2018 3:30:23 PM Referred By: NERY Confirmed By:EDER RIOS MD
--- NOTE | 2017-12-31 09:56 | PN_ITS ---
<Alisha Agudelo - Last Filed: 12/31/17 10:05> Patient Problems: Active and Suspected Problems Colitis (Acute) Hypokalemia (Acute) Subjective: Patient seen and examined. States abdominal pain/cramping is improved. Has had 3 episodes of diarrhea this morning. Notes small amount of blood in stool, although improved. Complains of episode of chest pain this morning. Patient states she has had intermittent chest pain for the past few months. She states sometimes she has 8-10 episodes a day which last approximately 30 seconds. She complains of intermittent palpitations as well. She states she was seen at outside ER at the end of October due to episode of syncope. She states she was not evaluated for her heart at that time. - Physical Exam General: Alert, Oriented x3, Cooperative, No apparent distress HEENT: Atraumatic, PERRLA, EOMI, Normocephalic Neck: Supple, No JVD, Negative Carotid Bruits Lungs: Clear to auscultation, Normal air movement Cardiovascular: Regular Rhythm, Normal S1, Normal S2, No murmurs, Bradycardic Abdomen: Bowel Sounds Present, Soft, Non Tender, Non-Distended, Obese Extremities: No clubbing, No cyanosis, No edema, Capillary Refill Less than 3 Seconds Skin: No rashes, No breakdown Musculoskeletal: No Tenderness to Palpation of Joints or Extremities Neurological: Cranial nerves II-XII grossly intact, Neuro grossly intact Psych/Mental Status: Normal Affect, Appropriate Vital Signs Temp Pulse Resp BP Pulse Ox 98.1 F 54 L 16 126/71 H 97 12/31/17 08:38 12/31/17 08:38 12/31/17 08:38 12/31/17 08:38 12/31/17 08:38 Oxygen Delivery Method Room Air Weight: 225 lb 2.882 oz Body Mass Index (BMI) 38.4 Intake and Output for Last 24 Hours 12/29/17 12/30/17 12/31/17 23:59 23:59 23:59 Intake Total 2623 / 2623 806 / 806 Output Total 1700 / 1700 1000 / 1000 Balance 923 / 923 -194 / -194 Microbiology Past 72 Hours 12/30/17 02:30 C. difficile DNA Amplification - Final Stool 12/30/17 02:30 Enteric Bacteriology - Final Stool Shiga Toxin 1 12/30/17 02:30 Stool Lactoferrin - Final Stool Laboratory Tests Past 24 Hrs 12/31/17 12/31/17 12/31/17 05:21 05:21 09:02 WBC 9.3 RBC 3.89 L Hgb 10.9 L Hct 33.8 L MCV 86.9 MCH 28.0 MCHC 32.2 RDW 13.1 RDW Differential 40.5 Plt Count 265 MPV 10.0 Sodium 142 Potassium 3.4 L Chloride 110 H Carbon Dioxide 23.0 Anion Gap 9 BUN 3 L Creatinine 0.64 Estim Creat Clear Calc 109.98 Est GFR (MDRD) Af Amer 138 Est GFR (MDRD) Non-Af 114 BUN/Creatinine Ratio 4.7 L Glucose 82 Calcium 8.3 L Troponin I < 0.015 Medical Necessity - Tobacco Use Smoking Status: Never smoker Tobacco Use: Non-smoker Assessment/Plan All Active Problems Colitis (Acute) Hypokalemia (Acute) 1. Acute colitis/gastroenteritis, stool panel positive for shiga toxin- Stool lactoferrin negative. C. difficile negative. Ova and parasites pending. Continue IV fluids. Advance diet as tolerated. Patient continues to complain of nausea and is only had ice chips and Jell-O. PRN Antiemetics. PRN pain regimen. Antibiotics discontinued. Anticipate discharge home tomorrow if continued improvement. 2. Intermittent bigeminy, bradycardia with chest pain-troponin negative. EKG without acute changes. Echocardiogram showed an EF of 65%, mild tricuspid valve insufficiency, RVSP estimated to be 41 mmHg, mild pulmonary hypertension. Will DC with event monitor and outpatient follow up with cardiology. 3. Hypokalemia- Resolved. DVT prophylaxis- SCDs This patient was seen by PRINCE Powers under the supervision of Dr. Pandey. <Raina Pandey - Last Filed: 12/31/17 13:02> - Physical Exam Vital Signs Temp Pulse Resp BP Pulse Ox 98.1 F 54 L 16 126/71 H 97 12/31/17 08:38 12/31/17 08:38 12/31/17 08:38 12/31/17 08:38 12/31/17 08:38 Oxygen Delivery Method Room Air Weight: 225 lb 2.882 oz Body Mass Index (BMI) 38.4 Intake and Output for Last 24 Hours 0912/30/17 12/31/17 23:59 23:59 23:59 Intake Total 2623 / 2623 1621 / 1621 Output Total 1700 / 1700 1400 / 1400 Balance 923 / 923 221 / 221 Microbiology Past 72 Hours 12/30/17 02:30 C. difficile DNA Amplification - Final Stool 12/30/17 02:30 Enteric Bacteriology - Final Stool Shiga Toxin 1 12/30/17 02:30 Stool Lactoferrin - Final Stool Laboratory Tests Past 24 Hrs 12/31/17 12/31/17 12/31/17 05:21 05:21 09:02 WBC 9.3 RBC 3.89 L Hgb 10.9 L Hct 33.8 L MCV 86.9 MCH 28.0 MCHC 32.2 RDW 13.1 RDW Differential 40.5 Plt Count 265 MPV 10.0 Sodium 142 Potassium 3.4 L Chloride 110 H Carbon Dioxide 23.0 Anion Gap 9 BUN 3 L Creatinine 0.64 Estim Creat Clear Calc 109.98 Est GFR (MDRD) Af Amer 138 Est GFR (MDRD) Non-Af 114 BUN/Creatinine Ratio 4.7 L Glucose 82 Calcium 8.3 L Troponin I < 0.015 Assessment/Plan Patient seen by Alisha Agudelo NP-C under my supervision. Diarrhea is no longer bloody. She had 3 loose stools overnight. She uses a well at home, and doesnt purify the water or boil it; only uses a water softener. She denies any fever chills, but complaint of chest pain during review. Troponins and EKG were negative and the EKG showed bigeminy which is been present previously. She says that her grandfather has A. fib and heart problems which started when he was a teenager. 2D echo showed EF of 65%, with normal diastole for age, and RVSP of 41mmHg; otherwise unremarkable. o/e: Vital Signs Height 5 ft 4.17 in Weight: 225 lb 2.882 oz Weight in Pounds 225.2 lbs Pulse Ox 97 Temperature 98.1 F Pulse Rate 54 Respiratory Rate 16 Blood Pressure 126/71 Blood Pressure Position Semi-Fowlers General: Alert, Oriented x3, Cooperative, No apparent distress HEENT: Atraumatic, PERRLA, EOMI, Normocephalic Neck: Supple, No JVD, Negative Carotid Bruits Lungs: Clear to auscultation, Normal air movement Cardiovascular: Regular Rhythm, Normal S1, Normal S2, No murmurs, Bradycardic Abdomen: Bowel Sounds Present, Soft, Non-Distended, Obese, Tender - Generalized Extremities: No clubbing, No cyanosis, No edema, Capillary Refill Less than 3 Seconds Skin: No rashes, No breakdown Musculoskeletal: No Tenderness to Palpation of Joints or Extremities Neurological: Cranial nerves II-XII grossly intact, Neuro grossly intact Psych/Mental Status: Normal Affect, Appropriate Assessmenta dn plan 1. gastroenteritis with colitis; resolving. To encourage oral intake. antibiotics dced. Stool grew Shiga toxin. continue IVF and advance diet as toelrated 2. Chest pain: troponins negative. EKG shows bigeminy. Refer to cardiology on discharge. Patient counseled about purifying her water by boiling it or using water purifying tablets. For likely DC tomorrow once oral intake improves Agree with rest of Alisha Agudelo CARDIOPULMONARY TECHNOLOGIST-c's note. 1 Code Visit OBSV E&M: 99416 Subsequent observation care L2
[2017-12-31] MEDS: HYDROmorphone 1 MG/ML Syringe 0.5 MG IV ×2 (13:46→20:55)
[2017-12-31] MEDS: proMETHazine 25 MG/ML Syringe 6.25 MG IV (20:54)
[2018-01-01] VITALS (12 sets, daily range): BP systolic 110–142; BP diastolic 59–78; PULSE 54–85; RESP 16–18; TEMP 36.8–37.2; O2SAT 96–98
[2018-01-01] MEDS: 0.9% Normal Saline 1,000 ML 125 ML IV ×2 (00:48→14:29)
--- NOTE | 2018-01-01 05:55 | EKG12_ITS ---
Test Reason : AM EKG Blood Pressure : / mmHG Vent. Rate : 053 BPM Atrial Rate : 053 BPM P-R Int : 134 ms QRS Dur : 096 ms QT Int : 420 ms P-R-T Axes : 013 022 048 degrees QTc Int : 394 ms Sinus bradycardia Otherwise normal ECG When compared with ECG of 01-JAN-2018 05:22, MANUAL COMPARISON REQUIRED, DATA IS UNCONFIRMED Confirmed by BLANCA DUMONT, EDER ([id number]), deputy editor in chief SHANICE NICKERSON ([id number]) on 01/05/2018 3:27:59 PM Referred By: JOSE L Confirmed By:EDER RIOS MD
[2018-01-01] MEDS: Dicyclomine 10 MG Capsule 20 MG PO ×4 (06:06→21:29)
[2018-01-01] MEDS: proMETHazine 25 MG/ML Syringe 6.25 MG IV (06:06)
[2018-01-01] MEDS: HYDROmorphone 1 MG/ML Syringe 0.5 MG IV ×2 (06:07→13:31)
[2018-01-01 07:56] LABS: International Normalized Ratio 1.1; Prothrombin Time (Protime)PT. 13.8 SECONDS (11.7-14.9)
[2018-01-01 07:57] LABS: Anion Gap 10 (5-15); BUN 2 mg/dL (7-18); BUN/Creat Ratio 2.6 RATIO (10-20); Calcium,Total 8.5 mg/dL (8.5-10.1); Chloride 108 mmol/L (98-107); Creatinine, Serum 0.76 mg/dL (0.55-1.02); EST Glomerular Filtration Rate 94 mL/min (>60); Est Glom Filt Rate - Afr Amer 114 mL/min (>60); Estimated Creatinine Clearance 92.62 ml/min; Glucose 92 mg/dL (74-106); Partial Thromboplast Time 34.8 Seconds (24.1-36.2); Potassium 3.6 mmol/L (3.5-5.1); Sodium Level 143 mmol/L (136-145)
[2018-01-01 08:11] LABS: Absolute Lymphocyte Count 1.79 X10^3/ul (0.83-4.51); Basophil# 0.04 X10^3/uL; Basophil% 0.5 % (0-1); Differential Indicated SCAN CRITERIA MET; Eosinophil# 0.26 X10^3/uL; Eosinophils% 3.5 % (0-5); Hematocrit 34.9 % (37-47); Hemoglobin 11.2 g/dl (12.0-15.0); Lymphocyte # 1.79 X10^3/ul (4.0); Lymphocyte % 23.8 % (19-41); Mean Corp Hgb Conc 32.1 g/gl (32-36); Mean Corpuscular Hgb 27.5 pg (27.0-32.0); Mean Corpuscular Volume 85.5 fL (81-99); Mean Platelet Vol. 9.6 fl (6.2-12.0); Monocyte# 0.45 X10^3/uL; Neutrophil # 4.99 X10^3/uL (2.7-7.7); Neutrophil % 66.2 % (47-70); POSITIVE COUNT NO; POSITIVE DIFFERENTIAL NO; POSITIVE MORPHOLOGY YES; Platelet Count 256 K/mm3 (150-450); RBC Distribution Width CV 13.1 % (11.6-14.6); RBC Distribution Width SD 40.9 fl (35.1-43.9); Red Blood Count 4.08 M/mm3 (4.2-5.4); White Blood Count 7.5 K/mm3 (4.4-11.0)
[2018-01-01 08:58] LABS: Differential Comment SCANNED; Reactive Lymphocyte 1+
--- NOTE | 2018-01-01 11:31 | DCINST_ITS ---
- Discharge Diagnoses Current Active Problems: Current Active and Chronic Problems Colitis (Acute) Hypokalemia (Acute) You will use the following diet at home:: Clear liquid - Advance as tolerated. Discharge Activity: Return to Normal Activity Call your doctor if you observe: Inability to urinate, Shortness of breath, Dizziness, Fainting spells, Chest pain Instructions: ED Diet [place], ED Gastroenteritis Shigella Ch Allergies/Adverse Reactions: Allergies venom-honey bee [bee venom (honey bee)] Allergy (Severe, Verified 12/29/17 16:31 ) Anaphylaxis azithromycin Allergy (Verified 12/29/17 15:57) Hives Medications to take at Discharge Dicyclomine HCl [Bentyl] 20 mg PO PRN PRN #20 cap 01/01/18 proMETHazine tablet [Phenergan tablet] 25 mg PO Q6H PRN PRN #20 tab 01/01/18 The following prescriptions were given: proMETHazine tablet [Phenergan tablet] 25 mg PO Q6H PRN PRN #20 tab PRN Reason: Nausea Dicyclomine HCl [Bentyl] 20 mg PO PRN PRN #20 cap PRN Reason: Abdominal Cramping Primary Care Physician: Care Physician,No Primary [Primary Care Provider] - Please follow up with your Primary Care Physician in: 1 Week Test Results: Test results from this visit will be discussed in further detail at your follow- up appointment, if applicable. Please Follow Up With: [facility] - Dr. Rogel, Dr. Wall When: Call Wednesday for appointment. Proposed Discharge Date: 01/01/18
--- NOTE | 2018-01-01 11:41 | PCM.DC.SUM ---
Discharge Date and Diagnosis Date of Admission: 12/29/17 Date of Discharge: 01/02/18 - Primary Discharge Diagnosis Active and Suspected Problems 1. Acute gastroenteritis with colitis, positive Shiga toxin 2. Chest pain, bigeminy, mild bradycardia-ACS ruled out. 3. Hypokalemia-resolved. Hospital Course and Treatment Imaging Results: Dr. Rogel- Cardiology Operations: None Procedures: 2-D Echocardiogram, Cardiac catheterization, Stress test Summary of Care Provided: The patient is a 32 year old F admitted 12/29/2017 due to abdominal pain, diarrhea, nausea. CT of abdomen and outside facility showed diffuse colitis. She was started on Flagyl and Bentyl as outpatient with worsening of symptoms. 1. Acute colitis/gastroenteritis, stool panel positive for shiga toxin- Antibiotics discontinued. Stool lactoferrin negative. C. difficile negative. Ova and parasites pending. Instructed patient on bland diet, advance as tolerated. Discharged on phenergan as needed for nausea. Bentyl as needed for abdominal cramping. Instructed patient on good hand hygiene practices. Instructed patient if she develops increased abdominal cramping or nausea to return to clear liquid diet. Follow-up with primary care physician in 1 week. 2. Intermittent bigeminy, bradycardia with chest pain-troponin negative. EKG without acute changes. Echocardiogram showed an EF of 65%, mild tricuspid valve insufficiency, RVSP estimated to be 41 mmHg, mild pulmonary hypertension. Patient underwent nuclear stress test which was found to be abnormal. She then further underwent heart catheterization which demonstrated normal coronary arteries. ACS ruled out. Patient can follow with Dr. Rogel as needed if continued palpitations. 3. Hypokalemia- Resolved. Secondary #1. General: Alert, Oriented x3, Cooperative, No apparent distress HEENT: Atraumatic, PERRLA, EOMI, Normocephalic Neck: Supple, No JVD, Negative Carotid Bruits Lungs: Clear to auscultation, Normal air movement Cardiovascular: Regular Rhythm, Normal S1, Normal S2, No murmurs, Mild Bradycardic Abdomen: Bowel Sounds Present, Soft, Non Tender, Non-Distended, Obese Extremities: No clubbing, No cyanosis, No edema, Capillary Refill Less than 3 Seconds Skin: No rashes, No breakdown Musculoskeletal: No Tenderness to Palpation of Joints or Extremities Neurological: Cranial nerves II-XII grossly intact, Neuro grossly intact Psych/Mental Status: Normal Affect, Appropriate Patient seen exam prior to discharge. Physical assessment as noted above. Patient stable for discharge home with further follow-up with primary care physician and cardiology. This patient was seen by Alisha Agudelo NP-May under the supervision of Dr. Hutchinson. Discharge Diet: Light diet - advance as tolerated Discharge Activity: Return to Normal Activity Call your doctor if you observe: Inability to urinate, Shortness of breath, Dizziness, Fainting spells, Chest pain Home Medications: Medications to take at Discharge Dicyclomine HCl [Bentyl] 20 mg PO PRN PRN #20 cap 01/01/18 proMETHazine tablet [Phenergan tablet] 25 mg PO Q6H PRN PRN #20 tab 01/01/18 Following Prescrptions Were Given to Patient: proMETHazine tablet [Phenergan tablet] 25 mg PO Q6H PRN PRN #20 tab PRN Reason: Nausea Dicyclomine HCl [Bentyl] 20 mg PO PRN PRN #20 cap PRN Reason: Abdominal Cramping Primary Care Physician: Care Physician,No Primary [Primary Care Provider] - Please follow up with your Primary Care Physician in: 1 Week Please Follow Up With: Fercho Rogel MD - May see RESEARCH DEVELOPMENT DIRECTOR/PA When: As needed, if recurrent palpitations. Patient Instructions: ED Diet [place], ED Gastroenteritis Shigella Disposition: Home Minutes spent on discharge:: 35 Patient Condition:: Stable Medical Necessity - Tobacco Use Smoking Status: Never smoker Tobacco Use: Non-smoker Meaningful Use Info Meaningful Use Diagnoses (Choose all that apply): None applicable
--- NOTE | 2018-01-01 12:22 | STRESSREP ---
Stress Test Report Pharmacologic myocardial perfusion stress test. 32-year-old lady with a history of chest pain. Stress protocol: Resting EKG demonstrates sinus rhythm with a rate of 65 bpm resting blood pressure is 110/60 mmHg. 0.4 mg of regadenoson was infused per usual protocol. Continuous EKG monitoring was performed. The patient maintained sinus rhythm throughout the recording the maximum heart rate attained was 120 bpm which was 63% maximum predicted heart rate the maximum workload was 1 metabolic equivalent. At rest there were no ST or T-wave changes noted suggest abnormal flow reserve. 10 minutes into the infusion there was downsloping [address] depression noted in leads II, III and aVF with T-wave inversions noted in V4 V5 and V6 accompanied by chest pain. The resting blood pressure was 110/60 with a final blood pressure 120/62. Myocardial perfusion protocol. 1113.9 mCi of technetium 99m sestamibi was injected at rest. 0.4 mg of regadenoson was infused per usual protocol peak infusion 42.3 mCi of technetium 99m sestamibi was injected stress images were obtained stress and rest images were reconstructed and compared in the short axis vertical long horizontal long axis. Gated images were also obtained Perfusion SPECT analysis: There is significant GI and breast attenuation artifact noted. However, there is significant reduction of perfusion noted involving the entire anterior wall and apex. The inferior wall appears well perfused as well as the septum. The resting images demonstrate improvement in the entire anterior wall suggesting anterior wall ischemia. There is no obvious chamber dilatation noted. Gated SPECT analysis: The gated ejection fraction is noted to be 65% and a suboptimal study. Conclusion: Abnormal pharmacologic myocardial perfusion stress test with suggestion of anterior ischemia. Anterior breast wall donation cannot be completely excluded. EKG changes suggestive of abnormal flow reserve noted.
[2018-01-01] MEDS: 0.9% NaCl Peripheral Flush Adult/Peds IV (13:32)
--- NOTE | 2018-01-01 13:55 | PCM.CONS.C ---
Reason for Consult Date of Consultation: 01/01/18 Reason for Consultation: Chest discomfort History of Present Illness: The patient is a 32 year old F with a history of intermittent migraines who presented to the hospital with GI problems with diarrhea as well as abdominal cramping. She was evaluated and thought to be having a diffuse colitis after being evaluated by a CT scan. She apparently had some bright red blood per rectum. She was treated with antibiotics and subsequently was being medically managed. She also has had a previous history over the last 3-4 months of intermittent chest discomfort described as a squeezing sensation as well as radiating to her right shoulder. She says this occurs at a variety of times including with exertion and going away with rest. When she runs around her kids at home she gets the discomfort and then also when she goes up the stairs she gets the same discomfort as well as market shortness of breath. During this hospitalization she mentioned it she had an EKG done which did not demonstrate any significant abnormalities and was scheduled to have a stress test performed. She underwent a pharmacologic myocardial perfusion stress test today during which she demonstrated and developed chest pain during the infusion as well as developed EKG changes. The nuclear images though there was evidence of possible breast attenuation also had a defect involving the entire anterior wall. Due to the above abnormality cardiology was called to evaluate her. 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 Denies: Chest Discomfort, Shortness of Breath, Orthopnea, PND, Peripheral Edema, Palpitations, Lightheadedness, Dizziness, Near Syncope, Syncope Respiratory: Denies: Cough, Sputum Production, Hemoptysis Gastrointestinal: Denies: Hematemesis, Hematochezia, Melena Genitourinary: Denies: Dysuria, Hematuria Skin: Denies: Rash Subjectve: Pleasant lady no apparent distress at this time Objective: Vital Signs Temp Pulse Resp BP Pulse Ox 98.9 F 85 18 114/62 98 01/01/18 12:47 01/01/18 12:47 01/01/18 12:47 01/01/18 12:47 01/01/18 12:47 Oxygen Delivery Method Room Air Weight: 225 lb 2.882 oz Intake and Output for Last 24 Hours 12/30/17 12/31/17 01/01/18 23:59 23:59 23:59 Intake Total 1622 / 2623 3154 / 3154 2202 / 2202 Output Total 1400 / 1700 1800 / 1800 Balance 222 / 923 1354 / 1354 2202 / 2202 General: Awake, Alert, Oriented x 3 HEENT: PERRL, EOMI, Sclera Non Icteric Neck: Supple, Good ROM, No Lymph Node Enlargement Lungs: Clear to auscultation Cardiovascular: Regular Rhythm, Normal S1, Normal S2, No Murmurs, No Rubs, No Gallops Vascular: No Carotid Bruits, Normal Femoral Pulses, Normal Radial Pulses, Normal Dorsalis Pedal Pulse, Normal Posterior Tibial Pulses Abdomen: Bowel Sounds Present, Soft, Non Tender, No HSM, No Organomegaly Extremities: No Cyanosis, No Clubbing, No edema Neurological: No Focal Motor or Sensory Deficit 01/01/18 06:50: Sodium 143, Potassium 3.6, Chloride 108 H, Carbon Dioxide 25.0, Anion Gap 10, BUN 2 L, Creatinine 0.76, Est GFR (MDRD) Af Amer 114, Est GFR (MDRD) Non-Af 94, BUN/Creatinine Ratio 2.6 L, Glucose 92, Calcium 8.5 01/01/18 06:50: WBC 7.5, RBC 4.08 L, Hgb 11.2 L, Hct 34.9 L, MCV 85.5, MCH 27.5, MCHC 32.1, RDW 13.1, RDW Differential 40.9, Plt Count 256, MPV 9.6, Immature Gran % (Auto) 0.000, Neut % (Auto) 66.2, Lymph % (Auto) 23.8, [place] % (Auto) 6.0, Eos % (Auto) 3.5, Baso % (Auto) 0.5, Absolute Neuts (auto) 5.0, Total Counted Not Reportable 01/01/18 06:50: PT 13.8, INR 1.1, APTT 34.8 Rhythm: EKG: Normal sinus rhythm with no acute changes Assessment/Plan 1. Chest pain with abnormal stress test Ms. gifford presents with chest discomfort with a stress test which is abnormal as well as EKG changes. She is rather young to be experiencing the above that her history appears to have some typical nature to it. The abnormality of the stress test cannot be completely attributable to anterior breast wall attenuation. It is therefore of my opinion that we should at least exclude obstructive coronary disease via a cardiac catheterization. The risk benefits and alternatives have been explained to her and her mother and she understands and agrees to proceed. The above will be performed through the radial approach. Depending on the findings further recommendations will be made. Due to her recent history of bright red blood per rectum I would hold off on giving her any antiplatelet agents at this particular time.
--- NOTE | 2018-01-01 13:59 | PCM.PROGNOTE ---
Subjective: Patient seen and examined. Denies further chest pain overnight. Notes 3 episodes of diarrhea this morning. States abdominal cramping has significantly improved. Denies further blood in stool. Denies fever, chills. Underwent stress test which was reported to be abnormal. Cardiology to evaluate patient. - Physical Exam General: Alert, Oriented x3, Cooperative, No apparent distress HEENT: Atraumatic, PERRLA, EOMI, Normocephalic Neck: Supple, No JVD, Negative Carotid Bruits Lungs: Clear to auscultation, Normal air movement Cardiovascular: Regular Rhythm, Normal S1, Normal S2, No murmurs, Bradycardic Abdomen: Bowel Sounds Present, Soft, Non Tender, Non-Distended, Obese Extremities: No clubbing, No cyanosis, No edema, Capillary Refill Less than 3 Seconds Skin: No rashes, No breakdown Musculoskeletal: No Tenderness to Palpation of Joints or Extremities Neurological: Cranial nerves II-XII grossly intact, Neuro grossly intact Psych/Mental Status: Normal Affect, Appropriate Vital Signs Temp Pulse Resp BP Pulse Ox 98.9 F 85 18 114/62 98 01/01/18 12:47 01/01/18 12:47 01/01/18 12:47 01/01/18 12:47 01/01/18 12:47 Oxygen Delivery Method Room Air Weight: 225 lb 2.882 oz Intake and Output for Last 24 Hours 12/30/17 12/31/17 01/01/18 23:59 23:59 23:59 Intake Total 1622 / 2623 3154 / 3154 2202 / 2202 Output Total 1400 / 1700 1800 / 1800 Balance 222 / 923 1354 / 1354 2202 / 2202 Laboratory Tests Past 24 Hrs 01/01/18 01/01/18 01/01/18 06:50 06:50 06:50 WBC 7.5 RBC 4.08 L Hgb 11.2 L Hct 34.9 L MCV 85.5 MCH 27.5 MCHC 32.1 RDW 13.1 RDW Differential 40.9 Plt Count 256 MPV 9.6 Immature Gran % (Auto) 0.000 Neut % (Auto) 66.2 Lymph % (Auto) 23.8 [place] % (Auto) 6.0 Eos % (Auto) 3.5 Baso % (Auto) 0.5 Absolute Neuts (auto) 5.0 Absolute Lymphs (auto) 1.79 Total Counted Not Reportable Differential Comment SCANNED Reactive Lymphocytes 1+ PT 13.8 INR 1.1 APTT 34.8 Sodium 143 Potassium 3.6 Chloride 108 H Carbon Dioxide 25.0 Anion Gap 10 BUN 2 L Creatinine 0.76 Estim Creat Clear Calc 92.62 Est GFR (MDRD) Af Amer 114 Est GFR (MDRD) Non-Af 94 BUN/Creatinine Ratio 2.6 L Glucose 92 Calcium 8.5 Medical Necessity - Tobacco Use Smoking Status: Never smoker Tobacco Use: Non-smoker Assessment/Plan All Active Problems Colitis (Acute) Hypokalemia (Acute) 1. Acute colitis/gastroenteritis, stool panel positive for shiga toxin- Stool lactoferrin negative. C. difficile negative. Ova and parasites pending. Advance diet as tolerated. PRN Antiemetics. PRN pain regimen. Antibiotics discontinued. 2. Intermittent bigeminy, bradycardia with chest pain-troponin negative. EKG without acute changes. Echocardiogram showed an EF of 65%, mild tricuspid valve insufficiency, RVSP estimated to be 41 mmHg, mild pulmonary hypertension. Patient underwent nuclear stress test which was reported to be abnormal, suggestive of anterior ischemia. Cardiology consulted. Further plans per cardiology. N.p.o. 3. Hypokalemia- Resolved. DVT prophylaxis- SCDs This patient was seen by PRINCE Powers under the supervision of Dr. Hutchinson.
--- NOTE | 2018-01-01 14:01 | CON.PCM_ITS ---
Reason for Consult Date of Consultation: 01/01/18 Reason for Consultation: Chest discomfort History of Present Illness: The patient is a 32 year old F with a history of intermittent migraines who presented to the hospital with GI problems with diarrhea as well as abdominal cramping. She was evaluated and thought to be having a diffuse colitis after being evaluated by a CT scan. She apparently had some bright red blood per rectum. She was treated with antibiotics and subsequently was being medically managed. She also has had a previous history over the last 3-4 months of intermittent chest discomfort described as a squeezing sensation as well as radiating to her right shoulder. She says this occurs at a variety of times including with exertion and going away with rest. When she runs around her kids at home she gets the discomfort and then also when she goes up the stairs she gets the same discomfort as well as market shortness of breath. During this hospitalization she mentioned it she had an EKG done which did not demonstrate any significant abnormalities and was scheduled to have a stress test performed. She underwent a pharmacologic myocardial perfusion stress test today during which she demonstrated and developed chest pain during the infusion as well as developed EKG changes. The nuclear images though there was evidence of possible breast attenuation also had a defect involving the entire anterior wall. Due to the above abnormality cardiology was called to evaluate her. 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 Denies: Chest Discomfort, Shortness of Breath, Orthopnea, PND, Peripheral Edema, Palpitations, Lightheadedness, Dizziness, Near Syncope, Syncope Respiratory: Denies: Cough, Sputum Production, Hemoptysis Gastrointestinal: Denies: Hematemesis, Hematochezia, Melena Genitourinary: Denies: Dysuria, Hematuria Skin: Denies: Rash Subjectve: Pleasant lady no apparent distress at this time Objective: Vital Signs Temp Pulse Resp BP Pulse Ox 98.9 F 85 18 114/62 98 01/01/18 12:47 01/01/18 12:47 01/01/18 12:47 01/01/18 12:47 01/01/18 12:47 Oxygen Delivery Method Room Air Weight: 225 lb 2.882 oz Intake and Output for Last 24 Hours 12/30/17 12/31/17 01/01/18 23:59 23:59 23:59 Intake Total 1622 / 2623 3154 / 3154 2202 / 2202 Output Total 1400 / 1700 1800 / 1800 Balance 222 / 923 1354 / 1354 2202 / 2202 General: Awake, Alert, Oriented x 3 HEENT: PERRL, EOMI, Sclera Non Icteric Neck: Supple, Good ROM, No Lymph Node Enlargement Lungs: Clear to auscultation Cardiovascular: Regular Rhythm, Normal S1, Normal S2, No Murmurs, No Rubs, No Gallops Vascular: No Carotid Bruits, Normal Femoral Pulses, Normal Radial Pulses, Normal Dorsalis Pedal Pulse, Normal Posterior Tibial Pulses Abdomen: Bowel Sounds Present, Soft, Non Tender, No HSM, No Organomegaly Extremities: No Cyanosis, No Clubbing, No edema Neurological: No Focal Motor or Sensory Deficit 01/01/18 06:50: Sodium 143, Potassium 3.6, Chloride 108 H, Carbon Dioxide 25.0, Anion Gap 10, BUN 2 L, Creatinine 0.76, Est GFR (MDRD) Af Amer 114, Est GFR ( MDRD) Non-Af 94, BUN/Creatinine Ratio 2.6 L, Glucose 92, Calcium 8.5 01/01/18 06:50: WBC 7.5, RBC 4.08 L, Hgb 11.2 L, Hct 34.9 L, MCV 85.5, MCH 27.5 , MCHC 32.1, RDW 13.1, RDW Differential 40.9, Plt Count 256, MPV 9.6, Immature Gran % (Auto) 0.000, Neut % (Auto) 66.2, Lymph % (Auto) 23.8, [place] % (Auto) 6.0 , Eos % (Auto) 3.5, Baso % (Auto) 0.5, Absolute Neuts (auto) 5.0, Total Counted Not Reportable 01/01/18 06:50: PT 13.8, INR 1.1, APTT 34.8 Rhythm: EKG: Normal sinus rhythm with no acute changes Assessment/Plan 1. Chest pain with abnormal stress test Ms. gifford presents with chest discomfort with a stress test which is abnormal as well as EKG changes. She is rather young to be experiencing the above that her history appears to have some typical nature to it. The abnormality of the stress test cannot be completely attributable to anterior breast wall attenuation. It is therefore of my opinion that we should at least exclude obstructive coronary disease via a cardiac catheterization. The risk benefits and alternatives have been explained to her and her mother and she understands and agrees to proceed. The above will be performed through the radial approach. Depending on the findings further recommendations will be made. Due to her recent history of bright red blood per rectum I would hold off on giving her any antiplatelet agents at this particular time.
[2018-01-01 14:27] LABS: Pregnancy, Serum, hCG Quali. NEGATIVE Negative (0-9 Nonpreg)
--- NOTE | 2018-01-01 14:32 | CASEMGMT ---
Insurance Review for In-Network facilities for MMO Insurance using MMO website, if transfer is recommended: [facility], [facility], [facility], [facility], [facility], [facility], and [facility].
[2018-01-01] MEDS: HYDROcodone Bitartrate/Apap 5/325 Tablet PO (15:35)
--- NOTE | 2018-01-01 18:20 | NURSING ---
medication pass administered under the supervision of this RN
[2018-01-01] MEDS: Acetaminophen 325 MG Tablet 650 MG PO (22:23)
[2018-01-02] VITALS (12 sets, daily range): BP systolic 99–129; BP diastolic 50–70; PULSE 55–63; RESP 16–18; TEMP 36.7–37.1; O2SAT 96–100
[2018-01-02] MEDS: Dicyclomine 10 MG Capsule 20 MG PO ×2 (06:28→12:39)
[2018-01-02] MEDS: HYDROcodone Bitartrate/Apap 5/325 Tablet PO (06:30)
[2018-01-02] MEDS: Ondansetron 4 MG/2 ML Vial IV (06:31)
[2018-01-02] MEDS: 0.9% NaCl Peripheral Flush Adult/Peds IV (06:31)
--- NOTE | 2018-01-02 08:25 | PCM.PN.CARD ---
Subjectve: Patient seen and evaluated. Appears to be doing better this morning. No further chest pain. Objective: Vital Signs Temp Pulse Resp BP Pulse Ox 98.7 F 58 L 16 99/50 L 97 01/02/18 03:15 01/02/18 07:10 01/02/18 03:15 01/02/18 03:15 01/02/18 03:15 Oxygen Delivery Method Room Air Weight: 225 lb 2.882 oz Intake and Output for Last 24 Hours 12/31/17 01/01/18 01/02/18 23:59 23:59 23:59 Intake Total 3154 / 3154 2622 / 2622 0 / 0 Output Total 1800 / 1800 Balance 1354 / 1354 2622 / 2622 0 / 0 General: Awake, Alert, Oriented x 3 HEENT: PERRL, EOMI, Sclera Non Icteric Neck: Supple, Good ROM, No Lymph Node Enlargement Lungs: Clear to auscultation Cardiovascular: Regular Rhythm, Normal S1, Normal S2, No Murmurs, No Rubs, No Gallops Vascular: No Carotid Bruits, Normal Femoral Pulses, Normal Radial Pulses, Normal Dorsalis Pedal Pulse, Normal Posterior Tibial Pulses Abdomen: Bowel Sounds Present, Soft, Non Tender, No HSM, No Organomegaly Extremities: No Cyanosis, No Clubbing, No edema Neurological: No Focal Motor or Sensory Deficit 01/01/18 06:50: Total Counted Not Reportable Rhythm: EKG: ECHO: Stress Test: Cardiac Cath: PCI: CT Surgery: Holter monitor: EPS: PPM: CXR: Chest CT Scan: Medical Necessity - Tobacco Use Smoking Status: Never smoker Tobacco Use: Non-smoker Assessment/Plan 1. Chest pain with abnormal stress test Ms. Perez presents with chest discomfort with a stress test which is abnormal as well as EKG changes. She is rather young to be experiencing the above that her history appears to have some typical nature to it. The abnormality of the stress test cannot be completely attributable to anterior breast wall attenuation. She does have preserved left ventricular systolic function by the echocardiogram. It is therefore of my opinion that we should at least exclude obstructive coronary disease via a cardiac catheterization. The risk benefits and alternatives have been explained to her and her mother and she understands and agrees to proceed. The above will be performed through the radial approach. Depending on the findings further recommendations will be made. Due to her recent history of bright red blood per rectum I would hold off on giving her any antiplatelet agents at this particular time. Thank you for allowing me to participate in the care of your patient. Please don't hesitate to call if any issues arise
[2018-01-02] MEDS: 0.9% Normal Saline 1,000 ML 15 ML IV (09:44)
--- NOTE | 2018-01-02 10:03 | NURSING ---
verbal report given to barbara STANTON in boat lab[employer]
--- NOTE | 2018-01-02 11:04 | PCM.PN.BLA ---
Progress Note Cardiac catheterization demonstrated normal left main coronary artery, left anterior descending artery with no high-grade stenosis, circumflex artery with no high-grade stenosis, and large dominant right coronary artery with no significant stenosis. Her ejection fraction was noted to be preserved by echocardiogram. My recommendation would therefore to follow up medically. Patient can be discharged later today.
--- NOTE | 2018-01-02 11:08 | CL.D_ITS ---
Patient Name: GIGI DRAPER Study Date: 01/02/2018 Performing: Fercho Rogel MD Ht: 64.17 inches 163 cm : 1985 Wt: 224.87 lbs 102 kg Age: 32 Gender: female BSA: 2.06 PROCEDURE(S) PERFORMED [id number] CLINICAL PROFILE AND INDICATIONS Indications: Suspected CAD Heart Failure: None Stress/Imaging Stress Test w/SPECT MPI: Yes Result: Positive Low RiskStress Test with SPECT MPI: Positive Low Risk CAD Presentations: Symptom unlikely to be ischemic. CONCLUSIONS Normal coronary arteries RECOMMENDATIONS Medical therapy DESCRIPTION OF PROCEDURE The patient arrived to the procedure lab. The risks and benefits of the procedure as well as a full d escription of our services here and current unavailability of surgical backup were fully explained to the patient and/or their significant other prior to the catheterization. The Timeout was completed, verifying the correct patient and procedure. The patient's procedural site was prepped and draped in the usual fashion. Local anesthetic was given subcutaneously to right radial region with Lidocaine 2% . Using a modified Seldinger technique, arterial access was obtained via the right radial artery, a 6 Fr sheath was inserted. Right Coronary Artery selective angiography was then performed in multiple v iews using a 5 Fr. 4.0 Hughes catheter. Left Coronary Artery selective angiography was performed in mu ltiple views using a 5 Fr. 4.0 Hughes catheter.The arterial sheath was pulled and a TR Band was applie d for hemostasis CORONARY ANGIOGRAPHY DOMINANCE: Right Dominant LEFT HEART ASSESSMENT Left Ventricular Ejection Fraction: by Echo 65 % Normal LV wall motion Normal Left Ventricular systolic function LEFT MAIN: Angiographically normal LEFT ANTERIOR DECENDING ARTERY: Angiographically normal CIRCUMFLEX ARTERY: Angiographically normal RIGHT CORONARY ARTERY: Angiographically normal COMPLICATIONS No Complications PROCEDURE MEDICATIONS Versed 1 mg IV Fentanyl 50 mcg IV Versed 1 mg IV Fentanyl 25 mcg IV Fentanyl 25 mcg IV Fentanyl 25 mcg IV Oxygen: 2 L/min via nasal cannula Heparin given IA 01/02/2018 10:38:26 Heparin given IA 01/02/2018 10:38:26 Nitro 100 mcg IC 01/02/2018 10:51:07 Verapamil 2.5mg, Ntg 100mcgs, 2000 units of Heparin given IA 01/02/2018 10:38:26 Verapamil 2.5mg, Ntg 100mcgs, 2000 units of Heparin given IA 01/02/2018 10:38:26 SUMMARY OF HEMODYNAMIC DATA Time AIR REST ECG 10:16:50 AO 106/67 (86) SA 10:40:21 Signed By Fercho Rogel MD On 01/02/2018 11:08:09 Fercho Rogel MD
--- NOTE | 2018-01-02 11:13 | DCINST_ITS ---
You will use the following diet at home:: No restrictions - Advance as tolerated. Discharge Activity: Return to Normal Activity Call your doctor if you observe: Inability to urinate, Shortness of breath, Dizziness, Fainting spells, Chest pain Instructions: ED Diet [place], ED Gastroenteritis Shigella Ch Allergies/Adverse Reactions: Allergies venom-honey bee [bee venom (honey bee)] Allergy (Severe, Verified 12/29/17 16:31 ) Anaphylaxis azithromycin Allergy (Verified 12/29/17 15:57) Hives Medications to take at Discharge Dicyclomine HCl [Bentyl] 20 mg PO PRN PRN #20 cap 01/01/18 proMETHazine tablet [Phenergan tablet] 25 mg PO Q6H PRN PRN #20 tab 01/01/18 The following prescriptions were given: proMETHazine tablet [Phenergan tablet] 25 mg PO Q6H PRN PRN #20 tab PRN Reason: Nausea Dicyclomine HCl [Bentyl] 20 mg PO PRN PRN #20 cap PRN Reason: Abdominal Cramping Primary Care Physician: Care Physician,No Primary [Primary Care Provider] - Please follow up with your Primary Care Physician in: 1 Week Test Results: Test results from this visit will be discussed in further detail at your follow- up appointment, if applicable. Please Follow Up With: Fercho Rogel MD - May see HEAD OPERATOR SULFIDE/PA When: As needed, if recurrent palpitations Proposed Discharge Date: 01/01/18
[2018-01-02] MEDS: 0.9% Normal Saline 1,000 ML 60 ML IV (11:34)
[2018-01-02] MEDS: Acetaminophen 325 MG Tablet 650 MG PO (13:36)
== END 2018-01-02 15:05 | disposition home or self-care (01) | DRG 373 ==
LOC: ED 16:34 → MS3 12-30 06:13 → PCU 01-01 14:00
PROVIDERS: Nurse Practitioner Family; Physician Assistant; Student in an Organized Health Care Education/Training Program; Admitting Provider Family Medicine; Emergency Provider Emergency Medicine; Visit Provider Family Medicine
DX: A04.8 Other specified bacterial intestinal infections (principal); E87.6 Hypokalemia; R00.8 Other abnormalities of heart beat; R00.1 Bradycardia, unspecified; R07.89 Other chest pain; I27.20 Pulmonary hypertension, unspecified
CPT/HCPCS: 36415; 78452; 80048; 80053; 80061; 82274; 83630; 83690; 83735; 84484; 84703; 85025; 85027; 85610; 85730; 87177; 87209; 87493; 87506; 93005; 93017; 93306; 93454; 97802; 99152; 99153; 99282; A9500; J7030; Q9967; A4216; C1769; C1894; J2405; J2785

== ENCOUNTER → 2018-01-21 17:02 | Outpatient (CLI) | payer OTHER, SELFPAY | PROVIDERS: Family Provider Internal Medicine; PCP Internal Medicine; Referring Provider Internal Medicine; Visit Provider Internal Medicine | DX: A49.8 Other bacterial infections of unspecified site (principal) | CPT/HCPCS: 87506 ==

== ENCOUNTER → 2018-08-24 10:26 | Outpatient (CLI) | payer OTHER, SELFPAY ==
[2018-08-24 08:41] VITALS: BMI 41.8
== END ==
PROVIDERS: Family Provider Internal Medicine; PCP Internal Medicine; Referring Provider Internal Medicine Cardiovascular Disease; Visit Provider Internal Medicine Cardiovascular Disease
DX: I49.3 Ventricular premature depolarization (principal)
CPT/HCPCS: 93225; 93226

== ENCOUNTER 2020-04-26 14:55 | Emergency (ER) | payer OTHER, SELFPAY ==
[2019-04-14 13:26] VITALS: BMI 41.1
[2020-04-26 14:57] VITALS: BP 135/79; PULSE 72; RESP 18; TEMP 36.4; O2SAT 97; BMI 41.6
[2020-04-26 15:01] VITALS: BP 132/67; PULSE 72; RESP 18; TEMP 36.3; O2SAT 100
--- NOTE | 2020-04-26 15:22 | EKG12_ITS ---
Test Reason : EMMANUEL PAIN Blood Pressure : / mmHG Vent. Rate : 066 BPM Atrial Rate : 066 BPM P-R Int : 130 ms QRS Dur : 094 ms QT Int : 390 ms P-R-T Axes : 026 024 046 degrees QTc Int : 408 ms Normal sinus rhythm Nonspecific T wave abnormality Abnormal ECG Confirmed by BLANCA DUMONT, EDER ([id number]), art editor MASON CHAPA ([id number]) on 04/29/2020 9:42:05 AM Referred By: KENNY Confirmed By:EDER RIOS MD
--- NOTE | 2020-04-26 15:22 | CT_ITS ---
STUDY: CTA CHEST REASON FOR EXAM: Female, 34 years old. Chest pain, COVID +, increased SOB. RADIATION DOSAGE (If Supplied By Facility): CTDIvol = ( 11.45 ) mGy, DLP = ( 470.88 ) mGycm TECHNIQUE: The examination was performed with the intravenous administration of 100mL Isovue 370. Post-processing of the angiographic images was performed, with multiplanar reformation and 3D reconstruction. Individualized dose optimization techniques were used for this CT. COMPARISON: None. FINDINGS: Normal enhancement of the main pulmonary artery and right and left pulmonary arteries. Normal enhancement of the bilateral peripheral pulmonary arteries. There is no demonstrated pulmonary embolism. Normal thoracic aorta and visualized great vessels. There is no demonstrated aortic dissection. Normal heart and pericardium. Normal mediastinum. Normal hilar regions. Normal visualized trachea and bronchi. The lungs are under expanded. 4 mm indeterminate nodule seen in the posterior left apex, axial image 180. 6 mm indeterminate nodule seen of the left upper lobe, axial image 146. 4 mm nodule in the posterior left lower lobe, axial image 1:15. 3 mm nodule in the posterior right lower lobe, axial image 103. 6 mm indeterminate nodule in the posterior left midlung, axial image 105. Ill-defined 1.2 cm focal pulmonary opacity in the posterior lateral left lower lobe, axial image 78. Ill-defined irregular 1.7 cm pulmonary opacity in the medial right lung base, axial image 78. Ill-defined irregular 3 cm pulmonary opacity in the posterior right costophrenic angle, axial image 57. No effusions. Normal osseous structures. Normal visualized upper abdomen. CT/CTA Chest W/WO Contrast IMPRESSION: Normal CTA chest examination, without a demonstrated pulmonary embolism or arterial dissection. Low lung volumes. Numerous focal pulmonary opacities as above, most likely inflammatory. These are not typical for COVID 19. Correlate clinically and recommend follow-up. Electronically Signed: Neeraj Jensen MD at 16:53 EST , Service support ,
[2020-04-26 15:35] VITALS: O2SAT 98
[2020-04-26] MEDS: 0.9% Normal Saline 1,000 ML 1000 ML IV (15:38)
[2020-04-26 15:39] LABS: Absolute Lymphocyte Count 2.74 X10^3/uL (0.83-4.51); Absolute Neutrophil Count 4.8 X10^3/uL (2.0-7.7); Basophil# 0.02 X10^3/uL; Basophil% 0.3 % (0-1); Eosinophils% 1.3 % (0-5); Hematocrit 39.9 % (37-47); Hemoglobin 12.6 g/dL (12.0-15.0); Lymphocyte # 2.74 X10^3/ul (4.0); Lymphocyte % 34.4 % (19-41); Mean Corp Hgb Conc 31.6 g/dL (32-36); Mean Corpuscular Hgb 27.6 pg (27.0-32.0); Mean Corpuscular Volume 87.3 fL (81-99); Mean Platelet Vol. 9.8 fl (6.2-12.0); Monocyte# 0.33 X10^3/uL; Monocyte% 4.1 % (0-10); NRBC Flagged by Analyzer 0 % (0-5); Neutrophil # 4.76 X10^3/uL (2.7-7.7); Neutrophil % 59.6 % (47-70); Platelet Count 275 K/mm3 (150-450); RBC Distribution Width CV 13.5 % (11.6-14.6); RBC Distribution Width SD 42.5 fl (35.1-43.9); Red Blood Count 4.57 M/mm3 (4.2-5.4)
[2020-04-26 15:42] LABS: International Normalized Ratio 1.1; Partial Thromboplast Time 28.4 Seconds (24.1-36.2); Prothrombin Time (Protime)PT. 13.3 SECONDS (11.7-14.9)
[2020-04-26 15:52] LABS: Internal QC Validated? YES +Cl - CLEAR BKGD; Pregnancy, Serum, hCG Quali. NEGATIVE Negative
[2020-04-26 15:58] LABS: Anion Gap 5 (5-15); BUN 14 mg/dL (7-18); BUN/Creat Ratio 17.2 RATIO (10-20); Calcium,Total 8.4 mg/dL (8.5-10.1); Chloride 109 mmol/L (98-107); Creatinine, Serum 0.81 mg/dL (0.55-1.02); EST Glomerular Filtration Rate 86 mL/min (>60); Est Glom Filt Rate - Afr Amer 104 mL/min (>60); Glucose 85 mg/dL (74-106); Potassium 3.3 mmol/L (3.5-5.1); Sodium Level 141 mmol/L (136-145)
[2020-04-26 16:33] VITALS: PULSE 65; RESP 18; O2SAT 100
[2020-04-26] MEDS: Morphine 4 MG/ML Syringe IV (17:02)
[2020-04-26 17:04] VITALS: BP 112/65; PULSE 75; RESP 18; O2SAT 100
--- NOTE | 2020-04-26 17:12 | ED.DCSUM_ITS ---
- ER Visit Summary Date of Service: 04/26/20 Chief Complaint: Chest pain History of Present Illness: The patient is a 34 F who presents with chest pain that started today. It radiates from her right chest into her right arm and right side neck. Associated with headache, shortness of breath. Patient tested positive for COVID-19 2 days ago at an outside facility. Patient has a history of bigeminy and takes verapamil. Denies any other cardiac, respiratory history. Denies diabetes or immune suppression. Non-smoker. No history of blood clots. Physical Examination: Afebrile and vital signs unremarkable. Alert and oriented. No acute distress. Heart regular. Lungs clear. Abdomen soft and nontender. Skin appears normal. Test Results: EKG sinus rhythm with nonspecific T wave changes. Rate of 66. CBC normal. Potassium 3.3, chloride 109. Coags normal. Troponin normal. test negative. CT shows multiple pulmonary nodules bilaterally, likely inflammatory. Emergency Department Course and Treatment: Patient was placed on a monitor. Work-up as above. She initially declined pain medicine, but then requested something for pain. She was treated with morphine. Her work-up was fairly unremarkable except for the bilateral inflammatory nodules. I discussed this with Dr. Welch who is on-call for pulmonary/critical care. He said that the patient should have a repeat CTA in 4 to 6 weeks and he suspects that the nodules may resolve. If they are persistent or increasing, she may follow-up in the office. Otherwise, follow-up with primary care. Patient also meets criteria for monoclonal antibody therapy. A referral was placed. The hotline was contacted. Patient will receive follow-up paperwork for treatment. Treatment Plan: As above Disposition: Discharge Impression: COVID-19, bilateral pulmonary nodules This note was generated with [employer] software. It may contain incorrect words, spelling, and punctuation that were not noted in review of the chart prior to signing ED Disposition - Plan for ED Patient: Referrals: Yeimi Mullins MD [Primary Care Provider] -
--- NOTE | 2020-04-26 17:15 | ED.DEP ---
ED Disposition - Plan for ED Patient: Instructions: ED - COVID Monoclonal AB Infusion ... Prescriptions: Oxycodone HCl/Acetaminophen [Percocet 5/325] 1 tab PO Q6H PRN PRN 3 Days #12 tab PRN Reason: Pain/Inflammation Prescription Printed Referrals: Yeimi Mullins MD [Primary Care Provider] - Niels Welch MD [STAFF PHYSICIAN] - Additional Instructions: Follow up per instructions for outpatient monoclonal antibody therapy for covid 19. Follow up with your primary care doctor for a CTA chest in 4-6 weeks to reevaluate your lung nodules. They may go away. If they don't go away or enlarge, you may follow up with Dr. Welch (Pulmonology)
[2020-04-26 17:28] VITALS: BP 112/65; PULSE 68; RESP 18; O2SAT 98
== END 2020-04-26 18:08 | disposition home or self-care (01) ==
PROVIDERS: Emergency Provider Emergency Medicine; PCP Internal Medicine
DX: R91.8 Other nonspecific abnormal finding of lung field (principal); U07.1 COVID-19
CPT/HCPCS: 71275; 80048; 84484; 84703; 85025; 85610; 85730; 93005; 96361; 96374; 99285; J7030; Q9967; A4216

== ENCOUNTER → 2020-06-03 11:23 | Outpatient (CLI) | payer OTHER, SELFPAY ==
[2020-06-03 15:34] LABS: Anion Gap 5 (5-15); BUN 12 mg/dL (7-18); BUN/Creat Ratio 13.9 RATIO (10-20); Calcium,Total 9.2 mg/dL (8.5-10.1); Chloride 106 mmol/L (98-107); Creatinine, Serum 0.86 mg/dL (0.55-1.02); EST Glomerular Filtration Rate 80 mL/min (>60); Est Glom Filt Rate - Afr Amer 97 mL/min (>60); Glucose 86 mg/dL (74-106); Potassium 4.2 mmol/L (3.5-5.1); Sodium Level 140 mmol/L (136-145)
== END ==
PROVIDERS: PCP Internal Medicine; Referring Provider Internal Medicine; Visit Provider Internal Medicine
DX: E87.6 Hypokalemia (principal); I49.9 Cardiac arrhythmia, unspecified
CPT/HCPCS: 36415; 80048

== ENCOUNTER → 2020-06-07 06:51 | Outpatient (CLI) | payer OTHER, SELFPAY ==
--- NOTE | 2020-06-07 06:55 | CT_ITS ---
STUDY: CT CHEST WITH T WITHOUT CONTRAST REASON FOR EXAM: Female, 34 years old. F/U NODULES FROM [facility] 04/26/20. PATIENT HAD COVID AT THIS TIME RADIATION DOSAGE (If Supplied By Facility): CTDIvol = ( 16.41 ) mGy, DLP = ( 1290.68 ) mGycm TECHNIQUE: Transaxial imaging was performed pre-and post contrast administration of 100 ML ISOVUE 300. Multiplanar coronal and sagittal images were reformatted. Individualized dose optimization techniques were used for this CT. COMPARISON: Comparison is made with prior study dated 04/26/2020. FINDINGS: Small benign-appearing bilateral axillary lymph nodes. The previously seen nodules are not seen at this time. There is no demonstrated pleural abnormality. Normal heart and pericardium. There are multiple small lymph nodes within the mediastinum, which are normal in size and morphology most compatible with reactive lymph hyperplasia. Normal hilar regions. Normal enhanced and unenhanced pulmonary arteries. Normal aorta arch and descending thoracic aorta. There are mild degenerative changes of the thoracic spine. There is no demonstrated abnormality of the visualized upper abdomen. CT/Chest W/WO Contrast IMPRESSION: The lungs are now clear. Electronically Signed: Werner Brown MD at 9:02 EST , Service support ,
== END ==
PROVIDERS: PCP Internal Medicine; Referring Provider Internal Medicine; Visit Provider Internal Medicine
DX: R06.02 Shortness of breath (principal); R91.8 Other nonspecific abnormal finding of lung field; R93.89 Abnormal findings on diagnostic imaging of other specified body structures
CPT/HCPCS: 71270; Q9967